=== PATIENT | female | born 2000 | race Two or more races ===

== ENCOUNTER 2023-11-08 16:10 | Outpatient (REF) | payer OTHER, SELFPAY ==
[2023-11-08 16:42] LABS: Glucose CSF 61 mg/dL (40-70); Total Protein CSF 27 mg/dL (15-45)
[2023-11-08 16:43] LABS: Glucose CSF 61 mg/dL (40-70); Total Protein CSF 23 mg/dL (15-45)
[2023-11-08 17:18] LABS: CSF Clarity CLEAR (CLEAR); CSF Color COLORLESS (COLORLESS); CSF Total Volume 5 mL; CSF Tube # 2; Red Blood Cell CSF 0 cubic mm; Red Blood Cell CSF Side 1 0; Red Blood Cell CSF Side 2 1; White Blood Cell CSF 1 cubic mm; White Blood Cell CSF Side 1 2; White Blood Cell CSF Side 2 1
[2023-11-08 17:19] LABS: CSF Clarity CLEAR (CLEAR); CSF Color COLORLESS (COLORLESS); CSF Total Volume 1 mL; CSF Tube # 4; Red Blood Cell CSF 3 cubic mm; Red Blood Cell CSF Side 1 3; Red Blood Cell CSF Side 2 3; White Blood Cell CSF 1 cubic mm; White Blood Cell CSF Side 1 2; White Blood Cell CSF Side 2 1
== END 2023-11-08 16:11 | disposition home or self-care (01) ==
LOC: LAB 16:10
PROVIDERS: Visit Provider Psychiatry & Neurology Neurology
DX: G93.2 Benign intracranial hypertension (principal)
CPT/HCPCS: 36415; 82164; 82945; 84157; 86617; 87070; 87205; 89050